=== PATIENT | female | born 1995 | race Caucasian/White ===

== ENCOUNTER 2018-12-26 21:47 | Emergency (ER) | payer OTHER ==
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
[2018-12-26 22:27] VITALS: TEMP 98.6; BMI 32.5
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
[2018-12-27] MEDS ORDERED: ACETAMINOPHEN 325 MG TABLET (FP) ONE (02:10)
[2018-12-27] MEDS ORDERED: ACETAMINOPHEN 500 MG TABLET (FP) PO ONE (02:10)
[2018-12-27 02:15] VITALS: BP 139/91; PULSE 103
== END 2018-12-27 02:14 | disposition home or self-care (01) ==
LOC: JER 21:47
DX: S00.83XA Contusion of other part of head, initial encounter (principal); S01.111A Laceration without foreign body of right eyelid and periocular area, initial encounter; Y04.2XXA Assault by strike against or bumped into by another person, initial encounter; Y93.89 Activity, other specified; Y92.018 Other place in single-family (private) house as the place of occurrence of the external cause; Y99.8 Other external cause status; Y07.59 Other non-family member, perpetrator of maltreatment and neglect
CPT/HCPCS: 36415; 70486-TC; 84702; 84703; 99284-25

== ENCOUNTER 2019-12-05 00:48 | Emergency (ER) | payer OTHER ==
[2019-12-05 01:44] VITALS: BMI 40.0
[2019-12-05] MEDS ORDERED: ACETAMINOPHEN 325 MG TABLET (FP) PO ONE (02:10)
[2019-12-05] MEDS ORDERED: ACETAMINOPHEN 325 MG TABLET (FP) ONE (02:13)
[2019-12-05] MEDS ORDERED: ONDANSETRON *ODT* 4 MG TABLET SL ONE (02:19)
[2019-12-05] MEDS ORDERED: ONDANSETRON *ODT* 4 MG TABLET ONE (02:21)
--- NOTE | 2019-12-05 02:39 | PDOC ---
Attending Attestation - Resident Resident Name: Hansel Rojas - ED Attending Attestation I have performed the following: I have examined & evaluated the patient, The case was reviewed & discussed with the resident, I agree w/resident's findings & plan, Exceptions are as noted - HPI HPI: 12/05/19 02:37 24 F with h/o kidney stones presenting with L flank pain and suprapubic pain. Pt endorses dysuria. Denies F/C. Endorses nausea with one episode of vomiting. - Physicial Exam PE: 12/05/19 05:09 See resident exam - Medical Decision Making 12/05/19 05:09 24 F with flank pain and dysuria. Will r/o renal colic - stone vs pyelo. - Labs, UA, UCx - CT if indicated 12/05/19 05:10 UA consistent with UTI CT obtained - no obstructing stone. Will DC with abx for pyelo Pt is well appearing, with normal vitals. Clinically stable for DC at this time. I discussed the physical exam findings, ancillary test results and final diagnoses with the patient. I answered all of the patient's questions. The patient was satisfied with the care received and felt comfortable with the discharge plan and treatment plan. The patient agrees to follow up with the primary care physician within 24-72 hours. Discharge - Discharge Information Problems reviewed: Yes Clinical Impression/Diagnosis: Pyelonephritis, Flank pain UTI (urinary tract infection) Qualifiers: Urinary tract infection type: site unspecified Hematuria presence: without hematuria Qualified Code(s): N39.0 - Urinary tract infection, site not specified Condition: Improved Disposition: HOME - Additional Discharge Information Prescriptions: levoFLOXacin [Levaquin] 750 mg PO DAILY #4 tab - Follow up/Referral Referrals: [facility] [place] Internal Med at [place] [Provider Group] - Patient Discharge Instructions Patient Printed Discharge Instructions: DI for Kidney Infection, DI for Urinary Tract Infection (UTI) Additional Instructions: You were seen in the emergency department for the evaluation of your urinary tract infection. You have potentially pyelonephritis which is an infection of the kidney. You do not have a stone on the CT of the abdomen. Please take the antibiotics as prescribed. Please return to the emergency department if you have worsening symptoms or new concerning symptoms. Thank you. - Post Discharge Activity Work/Back to School Note: Back to Work
[2019-12-05 02:44] LABS: HCG,QUALITATIVE URINE Negative
[2019-12-05 02:45] LABS: EPI CELLS >36 /uL (0-25.1); HYALINE CASTS 15 /uL (0-3.1); URINE APPEARANCE TURBID; URINE BILIRUBIN NEGATIVE (NEGATIVE); URINE COLOR YELLOW; URINE GLUCOSE (UA) NEGATIVE (NEGATIVE); URINE KETONE 4+ (NEGATIVE); URINE LEUK ESTERASE NEGATIVE (NEGATIVE); URINE NITRITE NEGATIVE (NEGATIVE); URINE PROTEIN TRACE (NEGATIVE); URINE RBC 45 /uL (0-23.9); URINE UROBILINOGEN 0.2 mg/dL (0.2-1.0)
[2019-12-05 03:17] LABS: BASO % 0.2 % (0-2.0); EOS % 0.2 % (0-4.5); HEMOGLOBIN 12.4 GM/dL (10.7-15.3); LYMPH % 6.9 % (8-40); MCH 25.8 pg (25.7-33.7); MCHC 31.8 g/dl (32.0-36.0); MEAN CELL VOLUME 81.1 fl (80-96); MEAN PLT VOLUME 9.8 fl (7.5-11.1); NEUT % 85.7 % (42.8-82.8); PLATELET COUNT 350 K/MM3 (134-434); RBC 4.81 M/mm3 (3.60-5.2); RDW 18.8 % (11.6-15.6); WHITE BLOOD COUNT 16.8 K/mm3 (4.0-10.0)
[2019-12-05 03:43] LABS: ALBUMIN 3.7 g/dl (3.4-5.0); BILIRUBIN,TOTAL 0.4 mg/dL (0.2-1); BLOOD UREA NITROGEN 9.3 mg/dL (7-18); CALCIUM 9.5 mg/dL (8.5-10.1); CREATININE 1.1 mg/dL (0.55-1.3); POTASSIUM 4.7 mmol/L (3.5-5.1); TOT PROT 7.7 g/dl (6.4-8.2)
--- NOTE | 2019-12-05 04:33 | PDOC ---
History of Present Illness - General Chief Complaint: Urinary Problem Stated Complaint: UTI Time Seen by Provider: 12/05/19 01:59 History Source: Patient Exam Limitations: No Limitations - History of Present Illness Initial Comments: 24 yo F with a hx of nephrolithiasis presents to the emergency department with left flank pain and suprapubic pain that began today. Per the patient, the pain is intermittent, similar to her previous kidney stone episode, 10/10 earlier in the day but now 6/10, and slight improvement in pain with tylenol. The patient denies the following: fevers, chills, dysuria, hematuria, diarrhea, abdominal pain, chest pain, SOB, vaginal bleeding, and vaginal discharge. Past History - Medical History Allergies/Adverse Reactions: Allergies Allergy/AdvReac Type Severity Reaction Status Date / Time No Known Allergies Allergy Verified 12/26/18 22:27 Home Medications: Ambulatory Orders Topiramate [Topamax] 25 mg PO DAILY 12/26/18 levoFLOXacin [Levaquin] 750 mg PO DAILY #4 tab 12/05/19 COPD: No - Reproductive History Is Patient Now?: No - Psycho-Social/Smoking History Smoking History: Unknown if ever smoked Review of Systems - Review of Systems Able to Perform ROS?: Yes Is the patient limited Citizen [place] proficient: No Constitutional: No: Chills, Diaphoresis, Fever, Weakness HEENTM: No: Eye Pain, Ear Pain, Nose Pain, Throat Pain Respiratory: No: Cough, Shortness of Breath Cardiac (ROS): No: Chest Pain, Palpitations ABD/GI: No: Constipated, Diarrhea, Nausea, Vomiting : Yes: Flank Pain. No: Burning, Dysuria, Hematuria Musculoskeletal: No: Back Pain, Joint Pain, Neck Pain Integumentary: No: Rash Neurological: No: Headache Psychiatric: No: Change in Appetite Endocrine: No: Unexplained Weight Loss Hematologic/Lymphatic: No: Anemia *Physical Exam - Vital Signs Last Vital Signs Temp Pulse Resp BP Pulse Ox 98.5 F 89 20 139/86 100 12/05/19 01:36 12/05/19 01:36 12/05/19 01:36 12/05/19 01:36 12/05/19 01:36 - Physical Exam General Appearance: Yes: Nourished, Appropriately Dressed. No: Apparent Distres s, Intoxicated HEENT: positive: EOMI, KARTIK, Normal Voice, Symmetrical, Pharynx Normal, Hearing Grossly Normal. negative: Pale Conjunctivae, Scleral Icterus (R), Scleral Icter us (L), Muffled/Hoarse voice, Pharyngeal Erythema, Tonsillar Exudate, Tonsillar Erythema, Nasal Congestion, Excessive drooling Neck: positive: Trachea midline, Supple. negative: Tender, Lymphadenopathy (R), Lymphadenopathy (L), Tender lateral, Tender midline Respiratory/Chest: positive: Lungs Clear, Normal Breath Sounds. negative: Chest Tender, Respiratory Distress, Accessory Muscle Use Cardiovascular: positive: Regular Rhythm, Regular Rate, S1, S2. negative: Systolic Murmur Gastrointestinal/Abdominal: positive: Normal Bowel Sounds, Tender (mild suprapubic tenderness), Flat, Soft Musculoskeletal: positive: Normal Inspection, CVA Tenderness (left). negative: Vertebral Tenderness Integumentary: positive: Normal Color, Dry, Warm Neurologic: positive: Alert, Normal Mood/Affect ED Treatment Course - LABORATORY CBC & Chemistry Diagram: 12/05/19 02:55 12/05/19 02:55 - ADDITIONAL ORDERS Additional order review: Laboratory Results 12/05/19 12/05/19 02:55 00:55 Sodium 140 Potassium 4.7 Chloride 106 Carbon Dioxide 21 Anion Gap 13 BUN 9.3 Creatinine 1.1 Est GFR (CKD-EPI)AfAm 80.81 Est GFR (CKD-EPI)NonAf 69.72 Random Glucose 106 Calcium 9.5 Total Bilirubin 0.4 AST 42 H ALT 22 Alkaline Phosphatase 85 Total Protein 7.7 Albumin 3.7 Urine Color Yellow Urine Appearance Turbid Urine pH 5.0 Ur Specific [place] 1.026 Urine Protein Trace Urine Glucose (UA) Negative Urine Ketones 4+ H Urine Blood 1+ H Urine Nitrite Negative Urine Bilirubin Negative Urine Urobilinogen 0.2 Ur Leukocyte Esterase Negative Urine RBC (Auto) 45 Urine Casts (Auto) 15 U Epithel Cells (Auto) >36 Urine Bacteria (Auto) >10,000 Urine HCG, Qual Negative 12/05/19 02:55 RBC 4.81 MCV 81.1 MCHC 31.8 L RDW 18.8 H MPV 9.8 Neutrophils % 85.7 H Lymphocytes % 6.9 L Monocytes % 7.0 Eosinophils % 0.2 Basophils % 0.2 - RADIOLOGY Radiology Studies Ordered: Category Date Time Status SPIRAL- RENAL-STONE CT [CT] Stat CT Scan 12/05/19 03:31 Ordered - Medications Given in the ED: ED Medications Discontinued Medications Generic Name Dose Route Start Last Admin Trade Name Geraldq PRN Reason Stop Dose Admin Acetaminophen 975 mg 12/05/19 02:10 12/05/19 02:19 Tylenol - PO 12/05/19 02:11 975 mg ONCE ONE Administration Ondansetron HCl 4 mg 12/05/19 02:19 12/05/19 02:30 Zofran Odt - SL 12/05/19 02:20 4 mg ONCE ONE Administration Medical Decision Making - Medical Decision Making 24 yo F with a hx of nephrolithiasis presents to the emergency department with left flank pain and suprapubic pain that began today. Initial vitals: Initial Vital Signs Temp Pulse Resp BP Pulse Ox 98.5 F 89 20 139/86 100 12/05/19 01:36 12/05/19 01:36 12/05/19 01:36 12/05/19 01:36 12/05/19 01:36 Work up: patient presents to the emergency department with left flank pain ddx: pyelo vs nephrolithiasis vs UTI vs infected stone vs hydronephrosis Laboratory Tests 12/05/19 12/05/19 12/05/19 00:55 02:55 02:55 WBC 16.8 H RBC 4.81 Hgb 12.4 Hct 39.0 MCV 81.1 MCH 25.8 MCHC 31.8 L RDW 18.8 H Plt Count 350 MPV 9.8 Absolute Neuts (auto) 14.4 H Neutrophils % 85.7 H Lymphocytes % 6.9 L Monocytes % 7.0 Eosinophils % 0.2 Basophils % 0.2 Nucleated RBC % 0 Sodium 140 Potassium 4.7 Chloride 106 Carbon Dioxide 21 Anion Gap 13 BUN 9.3 Creatinine 1.1 Est GFR (CKD-EPI)AfAm 80.81 Est GFR (CKD-EPI)NonAf 69.72 Random Glucose 106 Calcium 9.5 Total Bilirubin 0.4 AST 42 H ALT 22 Alkaline Phosphatase 85 Total Protein 7.7 Albumin 3.7 Urine Color Yellow Urine Appearance Turbid Urine pH 5.0 Ur Specific [place] 1.026 Urine Protein Trace Urine Glucose (UA) Negative Urine Ketones 4+ H Urine Blood 1+ H Urine Nitrite Negative Urine Bilirubin Negative Urine Urobilinogen 0.2 Ur Leukocyte Esterase Negative Urine RBC (Auto) 45 Urine Casts (Auto) 15 U Epithel Cells (Auto) >36 Urine Bacteria (Auto) >10,000 Urine HCG, Qual Negative UA positive for UTI Patient re-assessed and was free of pain. The patient denies having a stone pass through while in the emergency department and denies hematuria on her last urination episode CTAP shows left hydronephrosis with no obstructing stone, but findings suggestive of a recently passed stone The patient was given levaquin for presumed infection of the kidneys. Patient to follow up with PMD Discharge - Discharge Information Problems reviewed: Yes Clinical Impression/Diagnosis: Pyelonephritis, Flank pain UTI (urinary tract infection) Qualifiers: Urinary tract infection type: site unspecified Hematuria presence: without hematuria Qualified Code(s): N39.0 - Urinary tract infection, site not specified Condition: Improved Disposition: HOME - Admission No - Additional Discharge Information Prescriptions: levoFLOXacin [Levaquin] 750 mg PO DAILY #4 tab - Follow up/Referral Referrals: [facility] [place] Internal Med at [place] [Provider Group] - Patient Discharge Instructions Patient Printed Discharge Instructions: DI for Kidney Infection, DI for Urinary Tract Infection (UTI) Additional Instructions: You were seen in the emergency department for the evaluation of your urinary tract infection. You have potentially pyelonephritis which is an infection of the kidney. You do not have a stone on the CT of the abdomen. Please take the antibiotics as prescribed. Please return to the emergency department if you have worsening symptoms or new concerning symptoms. Thank you. - Post Discharge Activity Work/Back to School Note: Back to Work
[2019-12-05] MEDS ORDERED: levoFLOXacin 750 MG TABLET PO ONE (05:00)
[2019-12-05 05:46] VITALS: BP 128/72; PULSE 76; TEMP 98.4
== END 2019-12-05 05:44 | disposition home or self-care (01) ==
LOC: JER 00:48
DX: N39.0 Urinary tract infection, site not specified (principal); N10 Acute pyelonephritis
CPT/HCPCS: 36415; 74176-TC; 80053; 81003; 84703; 85025; 87086; 99284-25; Q0162